=== PATIENT | male | born 2000 | race Hispanic/Latino ===

== ENCOUNTER 2025-08-23 19:01 | Emergency (ER) | payer SELFPAY ==
[~2025-08-23] VITALS: Ht 172.7 cm; Wt 137.0 kg
--- NOTE | 2025-08-23 19:28 | ERN ---
ED Note History of Present Illness Stated Complaint: ABCESS TO ABD AREA Chief Complaint: Abscess Time Seen by MD: 19:06 Time Seen by Midlevel: 19:06 Dictation: The patient is a 25-year-old male with no past medical history who presents to the emergency department with complaints of abscess to lower abdomen. Patient reports he has been having it for a month and occasionally drains. Denies any fevers. Allergies: Coded Allergies: No Known Allergies (Unverified Allergy, Unknown, 08/23/25) Home Meds Active Scripts Clindamycin HCl (Clindamycin HCl) 300 Mg Capsule, 1 CAP PO QID for 10 Days, #40 CAP 0 Refills Prov:LISA COSME PRINCIPAL CONSULTING ENGINEER 08/23/25 Past Medical History Past Medical History: No Pertinent History Surgical History: None RN Note Reviewed/Agreed w/PFSH: Yes Review of System Dictation Constitutional: Negative for fever,chills, and weight loss Eyes: Negative for injury, pain,redness, and discharge ENT: Negative for injury,pain or swelling Cardiovascular: Negative for chest pain, palpitations, and edema Respiratory: Negative for shortness of breath, cough, and wheezing, Abdomen/GI: Negative for abdominal pain, nausea, vomiting, diarrhea, and constipation Back: Negative for injury and pain : Negative for injury, bleeding and discharge MS/Extremity: Negative for injury and deformity Skin: Negative for rash, and discoloration positive for erythema and warmth to lower abdomen, Neuro: Negative for headache, weakness, numbness, tingling, and seizure Psych: Negative for suicide ideation, homicidal ideation, and hallucinations Initial Vital Sign VS Vital Signs Date Time Temp Pulse Resp B/P (MAP) Pulse Ox O2 Delivery O2 Flow Rate FiO2 08/23/25 19:03 98.1 84 18 133/81 98 Room Air 08/23/25 19:33 0 21 Physical Exam Dictation Vital Signs reviewed General Appearance: Alert, oriented x 3, no acute distress, well developed, nourished. Head and Face: non-traumatic. Eyes: PERRL, pink conjunctivas, eyelid no trauma, anterior chamber with arcus senilis. Ears: Pinnas intact and no signs of trauma or erythema ear canals clear and no d ischarge TM no erythema Nose: No discharge, no bleeding. Oropharynx: Mouth normal, tongue pink. pharynx clear,no erythema, tonsils no exudates, no abscesses noted, mucous membrane moist Neck: Supple, non-tender, no thyromegaly, no masses, no JVD, no bruits Breast:Deferred Chest:No tenderness, no crepitus, no paradoxical movement, no retractions Lungs:Clear, well-ventilated, symmetric, no rales, no wheezing, no rhonchi, no stridor, good breath sounds bilaterally Heart: Regular rate, regular rhythm, no murmur, no gallops Vascular: no peripheral edema, Abdomen: Soft, positive bowel sounds, nondistended, no guarding, nontender, no rebound, no masses no hepatomegaly, no splenomegaly, no Valenzuela's sign, no hernias. Rectal: Deferred Genital: Deferred Neurological: Normal speech, motor function intact, sensory function intact Musculoskeletal: Neck nontender, full range of motion, back nontender, full range of motion, Extremities: nontender, full range of motion Skin: Color pink, dry, no turgor, no rash, no lacerations, no abrasions, no contusions. erythema and warmth to lower abdomen, mild swelling, scant serous drainage Lymphatic: Deferred Results (Laboratory/Radiology) Labs Reviewed?: Yes ED Course ED Course Orders Procedure Category Date Status Time Us Abd Limited/Abd US 08/23/25 Resulted Wall 19:14 Clindamycin 150mg Cap PHA 08/23/25 Complete (Cleocin 150mg Cap 19:30 Hydrocodone/Apap PHA 08/23/25 Complete 5/325 (Kennard 5/325mg) 19:30 Current Medications Medications (Trade) Dose Ordered Sig/Adiel Route PRN Reason Start Time Stop Time Status Last Admin Dose Admin Acetaminophen/ Hydrocodone Bitart (NORco 5/325MG) 1 tab ONCE PO 08/23/25 19:30 08/23/25 20:18 DC 08/23/25 19:38 Clindamycin HCl (Cleocin 150mg Cap) 300 mg ONCE PO 08/23/25 19:30 08/23/25 20:18 DC 08/23/25 19:38 Vital Signs Date Time Temp Pulse Resp B/P (MAP) Pulse Ox O2 Delivery O2 Flow Rate FiO2 08/23/25 19:33 98.1 80 18 130/80 98 Room Air* 0 21 08/23/25 19:03 98.1 84 18 133/81 98 Room Air Medical Decision Making MDM The patient is a 25-year-old male with no past medical history who presents to the emergency department with complaints of abscess to lower abdomen. Patient reports he has been having it for a month and occasionally drains. Denies any fevers. Ultrasound revealed a hypoechogenic subcutaneous measuring 4 x0.7 x3.6 cm . On physical exam patient is in no acute distress, nontoxic appearance, stable vital signs, no fevers, no tachycardia. Patient will be discharged on antibiotics and instructed to follow up with PCP. Patient instructed to return if symptoms worsen or do not improve with the antibiotics. Differential diagnosis: Cellulitis, abdominal abscess, infected insect wound Need for hospitalization: Patient does not meet criteria for hospitalization. There are no social concerns with this patient. DX & DISP Disposition: Discharge Departure Impression: Primary Impression: Abdominal wall cellulitis Condition: Stable Scripts Clindamycin HCl (Clindamycin HCl) 300 Mg Capsule 1 CAP PO QID for 10 Days, #40 CAP 0 Refills Prov: LISA COSME 08/23/25 Additional Instructions: Please take your medications as prescribed. Follow up with your primary doctor in 1-2 days. If your infection spreads, you develop fevers or anything worsens please return to ER. FOLLOW-UP WITH PRIMARY CARE PROVIDER IN 1 TO 2 DAYS. TAKE MEDICATIONS DIRECTED HERE IN THE EMERGENCY ROOM. OKAY TO CONTINUE HOME MEDICATIONS UNLESS OTHERWISE DISCUSSED DURING YOUR VISIT IN THE EMERGENCY ROOM TODAY. RETURN TO YOUR NEAREST EMERGENCY ROOM IF SYMPTOMS WORSEN OR IF THERE IS NO IMPROVEMENT. CALL 911 IF YOU NEED IMMEDIATE ASSISTANCE. TAKE TYLENOL [id number] NEEDED AND IF NO CONTRAINDICATIONS ARE PRESENT. INCREASE ORAL HYDRATION. A WOUND CULTURE OR URINE CULTURE WAS ORDERED HERE IN THE EMERGENCY ROOM DEPARTMENT PLEASE FOLLOW-UP WITH PRIMARY CARE PROVIDER AND ADVISE THEM TO GET REPEAT PORTS FROM OUR FACILITY. IF YOU HAD ANY DEBBIE WRAP/SPLINTS THAT WERE APPLIED HERE, PLEASE DO NOT REMOVE THEM UNTIL YOU SEE YOUR PRIMARY CARE OR SPECIALTY. Referrals: NONE (PCP) Time of Disposition: 20:14 I have reviewed the case, and I agree with, Diagnosis and Plan LISA COSME Aug 23, 2025 19:27
[2025-08-23 19:33] VITALS: BP 130/80; PULSE 80; RESP 18; TEMP 98; O2SAT 98
[2025-08-23] MEDS: CLINDAMYCIN 150 MG CAP PO SCH (19:38)
[2025-08-23] MEDS: HYDROcodone/APAP 5/325 1 TAB TABLET PO SCH (19:38)
[2025-08-23] MEDS ORDERED: CLIN-141 PO (20:14)
--- NOTE | 2025-08-23 20:21 | HMCIMG ---
EXAM: US examination, anterior abdominal wall. CLINICAL HISTORY: Lower abd cellulitis/abscess TECHNIQUE: Real-time ultrasound examination of the anterior abdominal wall performed with image documentation. COMPARISON: None provided. FINDINGS: Well defined hypoechoic collection containing echogenic debris, in the midline of the subcutaneous plane in the anterior abdominal wall at the level of the hypogastrium, measuring 4 x 0.7 x 3.6 cm in craniocaudal, darius-posterior and transverse dimensions with evidence of increased flow on doppler and adjacent subcutaneous edema in the anterior abdominal wall. IMPRESSION: Well defined hypoechoic collection containing echogenic debris, in the midline of the subcutaneous plane in the anterior abdominal wall at the level of the hypogastriumm with evidence of increased flow on doppler and adjacent subcutaneous edema in the anterior abdominal wall. Consistent with infective collection/evolving abscess. Suggested CT abdomen and pelvis for further evaluation, if clinically indicated /Justyn
== END 2025-08-23 20:18 | disposition home or self-care (01) ==
LOC: EDH 19:01
DX: L03.311 Cellulitis of abdominal wall (principal)
CPT/HCPCS: 76705; 99284

== ENCOUNTER 2025-10-25 13:57 | Emergency (ER) | payer SELFPAY ==
[~2025-10-25] VITALS: Ht 180.3 cm; Wt 113.4 kg
--- NOTE | 2025-10-25 14:06 | ERN ---
General Chief Complaint: Sore Throat Stated Complaint: SORE THROAT Time Seen by MD: 14:01 Source: patient History of Present Illness Initial Comments 25-YEAR-OLD MALE COMING IN COMPLAINING OF SORE THROAT. STATES THAT THIS HAS BEEN GOING THROUGH A COUPLE OF DAYS. NO FEVER NO CHILLS. Allergies: Coded Allergies: No Known Allergies (Unverified Allergy, Unknown, 08/23/25) Home Meds Active Scripts Clindamycin HCl (Clindamycin HCl) 300 Mg Capsule, 1 CAP PO QID for 10 Days, #40 CAP 0 Refills Prov:LISA COSME LICENSING MANAGER 08/23/25 Past Medical History Past Medical History: No Pertinent History Past Surgical History: None ROS Dictation CONSTITUTIONAL: No chills, no fever, no weakness, no diaphoresis, no malaise. HEAD/FACE: No signs of trauma. EENT: No eye pain, no blurred vision, no tearing, no double vision, no ear pain, no ear discharge, no nose pain, no nasal congestion, throat pain, no throat swelling, no mouth pain. RESPIRATORY: No cough, no orthopnea, no SOB, no stridor, no wheezing. CARDIOVASCULAR: No chest pain, no edema, no palpitations, no syncope. GASTROINTESTINAL/ABDOMINAL: No abdominal pain, no constipation, no diarrhea, no nausea, no vomiting. GENITOURINARY: No abnormal discharge, no dysuria, no frequent urination, no hematuria. No complaints of pain in the genitals. MUSCULOSKELETAL: No back pain, no gout, no joint pain, no joint swelling, no muscle pain, no muscle stiffness, no neck pain. INTEGUMENTARY: No change in color, no change in hair/nails, no dryness, no lesion, no lumps, no rash. NEUROLOGICAL/PSYCH: No anxiety, not depressed, no emotional problem, no headache, no numbness, no pre-existing deficit, no history of seizures, no tremors, no weakness. HEMATOLOGIC/LYMPHATIC: Not anemic, no history of blood clots, no apparent bleeding, no bruising, glands not swollen. All Systems Negative, Except as Noted. Physical Exam Physical Exam Dictation VITAL SIGNS: Reviewed. GENERAL APPEARANCE: Alert, oriented x3, no acute distress, obese. HEAD AND FACE: Non-traumatic. EYES: PERRL, pink conjunctivas, eyelid no trauma, anterior chamber clear. EARS: Pinnas intact and no signs of trauma or erythema. Ear canals clear and no discharge. TMs no erythema. NOSE: No discharge, no bleeding. OROPHARYNX: Mouth normal, teeth no caries, tongue pink. Pharynx erythema. Tonsils exudates, no abscesses noted. Mucous membrane moist. NECK: Supple, non-tender, no thyromegaly, no masses, no JVD, no bruits. BREAST: Deferred. CHEST: No tenderness, no crepitus, no paradoxical movement, no retractions. LUNGS: Clear, well-ventilated, symmetric, no rales, no wheezing, no rhonchi, no stridor, good breath sounds bilaterally. HEART: Regular rate, regular rhythm, no murmur, no gallops. VASCULAR: No peripheral edema. ABDOMEN: Soft, positive bowel sounds, nondistended, no guarding, nontender, no rebound, no masses no hepatomegaly, no splenomegaly, no Valenzuela's sign, no hernias. RECTAL: Deferred. GENITAL: Deferred. NEUROLOGICAL: Normal speech, gross motor function intact, gross sensory function intact. MUSCULOSKELETAL: Neck nontender, full range of motion, back nontender, full range of motion. EXTREMITIES: Nontender, full range of motion. SKIN: Color pink, dry, no turgor, no rash, no lacerations, no abrasions, no contusions. LYMPHATICS: Deferred. Results Laboratory and Microbiology Labs Reviewed?: Yes MDM MDM: Differential diagnosis: Rationale: Tests considered and ordered secondary to shared decision making include: Previous outside records reviewed: Old ER visits. Risk of complication and/or morbidity or mortality of patient management: None Medications-Per medication reconciliation Need for hospitalization: Patient does not meet criteria for hospitalization. Need for emergency major/minor surgery: No There are no social concerns with this patient. Prescription drug management Prescriptions will include symptomatic care Patient's prior external medical records from other ER visits were reviewed by bernie villalba as indicated. Prior testing and results from previous visits were reviewed. Prior tests were taken into account with medical decision making and resource utilization, independent historian/historians were used to obtain complete medical history. I independently interpreted the test that were performed, results were reviewed by me and considered findings on radiology if ordered. Medical management and examination interpretation discussions were had by me with other qualified healthcare professionals as indicated for the patient's care. ED Course Orders Procedure Category Date Status Time Dexamethasone 4mg/Ml PHA 10/25/25 In Process 1ml Vial (Dexametha 14:30 Ceftriaxone 500mg PHA 10/25/25 Complete Vial (Rocephin 500mg I 14:06 Current Medications Medications (Trade) Dose Ordered Sig/Adiel Route PRN Reason Start Time Stop Time Status Last Admin Dose Admin Ceftriaxone Sodium (Rocephin 500mg Inj) 500 mg Q24H STAT IM 10/25/25 14:06 10/25/25 14:09 DC Dexamethasone Sodium Phosphate (dexaMETHasone 4MG/ML 1ML VIAL) 4 mg ONCE ONCE IM 10/25/25 14:30 10/25/25 14:31 Vital Signs Date Time Temp Pulse Resp B/P (MAP) Pulse Ox O2 Delivery O2 Flow Rate FiO2 10/25/25 13:58 98.8 112 16 141/80 98 Room Air DX & DISP Disposition: Discharge Departure Impression: Primary Impression: Strep pharyngitis Condition: Stable Scripts Acetaminophen (Tylenol) 500 Mg Tab 1 TAB PO Q6HPRN PRN for pain or fever for 5 Days, #30 TAB 0 Refills Prov: HIRA MALONE MD 10/25/25 Amoxicillin (Amoxicillin) 500 Mg Capsule 1 CAP PO TID for 10 Days, #30 CAP 0 Refills Prov: HIRA MALONE MD 10/25/25 Additional Instructions: FOLLOW-UP WITH PRIMARY CARE PROVIDER IN 1 TO 2 DAYS. TAKE MEDICATIONS DIRECTED HERE IN THE EMERGENCY ROOM. OKAY TO CONTINUE HOME MEDICATIONS UNLESS OTHERWISE DISCUSSED DURING YOUR VISIT IN THE EMERGENCY ROOM TODAY. RETURN TO YOUR NEAREST EMERGENCY ROOM IF SYMPTOMS WORSEN OR IF THERE IS NO IMPROVEMENT. CALL 911 IF YOU NEED IMMEDIATE ASSISTANCE. TAKE TYLENOL [id number] NEEDED AND IF NO CONTRAINDICATIONS ARE PRESENT. INCREASE ORAL HYDRATION. A WOUND CULTURE OR URINE CULTURE WAS ORDERED HERE IN THE EMERGENCY ROOM DEPARTMENT PLEASE FOLLOW-UP WITH PRIMARY CARE PROVIDER AND ADVISE THEM TO GET REPORTS FROM OUR FACILITY. IF YOU HAD ANY DEBBIE WRAP/SPLINTS THAT WERE APPLIED HERE, PLEASE DO NOT REMOVE THEM UNTIL YOU SEE YOUR PRIMARY CARE OR SPECIALTY. Referrals: Referrals: SELF,REFERRAL (PCP) DIANNE VILLATORO MD Time of Disposition: 14:12 HIRA MALONE MD Oct 25, 2025 14:05
[2025-10-25 14:37] VITALS: BP 134/74; PULSE 92; RESP 16; TEMP 98.8; O2SAT 98
[2025-10-25] MEDS: acetaMINOPHEN/coDEINE 120/12MG 5ML PO ONE (14:44)
== END 2025-10-25 14:54 | disposition home or self-care (01) ==
LOC: EDH 13:57
DX: J02.0 Streptococcal pharyngitis (principal); Z79.899 Other long term (current) drug therapy
CPT/HCPCS: 99284; 96372 ×2; J1100; J0696